=== PATIENT | male | born 1940 | race Caucasian/White ===

== ENCOUNTER 2022-10-04 08:12 | Outpatient (CLI) | payer MEDICARE, BC | END 2022-10-04 08:13 | disposition home or self-care (01) | LOC: CSHRAD 08:12 | PROVIDERS: ATTEND Nurse Practitioner Family | DX: J45.998 Other asthma (principal) | CPT/HCPCS: 71046 ==

== ENCOUNTER 2022-10-16 12:48 | Outpatient (CLI) | payer MEDICARE, BC | END 2022-10-16 12:49 | disposition home or self-care (01) | LOC: CSHWCC 12:48 | PROVIDERS: ATTEND Nurse Practitioner Family | DX: G31.84 Mild cognitive impairment of uncertain or unknown etiology (principal); J45.998 Other asthma; I10 Essential (primary) hypertension | CPT/HCPCS: 97139; G0277 ==

== ENCOUNTER 2022-11-09 10:07 | Outpatient (CLI) | payer MEDICARE, BC | END 2022-11-09 10:08 | disposition home or self-care (01) | LOC: CSHCT 10:07 | PROVIDERS: ATTEND Internal Medicine Pulmonary Disease | DX: R06.09 Other forms of dyspnea (principal); Z87.09 Personal history of other diseases of the respiratory system; J98.11 Atelectasis | CPT/HCPCS: 71250 ==

== ENCOUNTER 2022-12-11 08:09 | Outpatient (CLI) | payer MEDICARE, BC | END 2022-12-11 08:10 | disposition home or self-care (01) | LOC: CSHWCC 08:09 | PROVIDERS: ATTEND Nurse Practitioner Family | DX: I10 Essential (primary) hypertension (principal); J45.998 Other asthma | CPT/HCPCS: 97139; G0277 ==

== ENCOUNTER 2022-12-12 08:07 | Outpatient (CLI) | payer MEDICARE, BC | END 2022-12-12 08:08 | disposition home or self-care (01) | LOC: CSHWCC 08:07 | PROVIDERS: ATTEND Nurse Practitioner Family | DX: G31.84 Mild cognitive impairment of uncertain or unknown etiology (principal); J45.998 Other asthma | CPT/HCPCS: 97139; G0277 ==

== ENCOUNTER 2022-12-13 08:03 | Outpatient (CLI) | payer MEDICARE, BC | END 2022-12-13 08:04 | disposition home or self-care (01) | LOC: CSHWCC 08:03 | PROVIDERS: ATTEND Nurse Practitioner Family | DX: G31.84 Mild cognitive impairment of uncertain or unknown etiology (principal); I10 Essential (primary) hypertension; J45.998 Other asthma | CPT/HCPCS: 97139; G0277 ==

== ENCOUNTER 2022-12-14 08:07 | Outpatient (CLI) | payer MEDICARE, BC | END 2022-12-14 08:08 | disposition home or self-care (01) | LOC: CSHWCC 08:07 | PROVIDERS: ATTEND Nurse Practitioner Family | DX: G31.84 Mild cognitive impairment of uncertain or unknown etiology (principal); I10 Essential (primary) hypertension; J45.998 Other asthma | CPT/HCPCS: 97139; G0277 ==

== ENCOUNTER 2022-12-18 13:20 | Outpatient (CLI) | payer MEDICARE, BC | END 2022-12-18 13:21 | disposition home or self-care (01) | LOC: CSHWCC 13:20 | PROVIDERS: ATTEND Nurse Practitioner Family | DX: G31.84 Mild cognitive impairment of uncertain or unknown etiology (principal) ==

== ENCOUNTER 2022-12-19 13:05 | Outpatient (CLI) | payer MEDICARE, BC | END 2022-12-19 13:06 | disposition home or self-care (01) | LOC: CSHWCC 13:05 | PROVIDERS: ATTEND Nurse Practitioner Family | DX: I10 Essential (primary) hypertension (principal); G31.84 Mild cognitive impairment of uncertain or unknown etiology; J45.998 Other asthma ==

== ENCOUNTER 2022-12-20 13:19 | Outpatient (CLI) | payer MEDICARE, BC | END 2022-12-20 13:20 | disposition home or self-care (01) | LOC: CSHWCC 13:19 | PROVIDERS: ATTEND Nurse Practitioner Family | DX: G31.84 Mild cognitive impairment of uncertain or unknown etiology (principal); I10 Essential (primary) hypertension; J45.998 Other asthma | CPT/HCPCS: G0277 ==

== ENCOUNTER 2022-12-21 11:49 | Outpatient (CLI) | payer MEDICARE, BC | END 2022-12-21 11:50 | disposition home or self-care (01) | LOC: CSHWCC 11:49 | PROVIDERS: ATTEND Nurse Practitioner Family | DX: G31.84 Mild cognitive impairment of uncertain or unknown etiology (principal); J45.998 Other asthma; I10 Essential (primary) hypertension ==

== ENCOUNTER 2022-12-22 10:39 | Outpatient (CLI) | payer OTHER | END 2022-12-22 10:40 | disposition home or self-care (01) | LOC: CSHWCC 10:39 | PROVIDERS: ATTEND Nurse Practitioner Family | DX: G31.84 Mild cognitive impairment of uncertain or unknown etiology (principal) | CPT/HCPCS: G0277 ==

== ENCOUNTER 2022-12-26 08:25 | Outpatient (CLI) | payer MEDICARE, BC | END 2022-12-26 08:26 | disposition home or self-care (01) | LOC: CSHWCC 08:25 | PROVIDERS: ATTEND Nurse Practitioner Family | DX: G31.84 Mild cognitive impairment of uncertain or unknown etiology (principal) | CPT/HCPCS: G0277 ==

== ENCOUNTER 2022-12-27 08:21 | Outpatient (CLI) | payer MEDICARE, BC | END 2022-12-27 08:22 | disposition home or self-care (01) | LOC: CSHWCC 08:21 | PROVIDERS: ATTEND Nurse Practitioner Family | DX: I10 Essential (primary) hypertension (principal); G31.84 Mild cognitive impairment of uncertain or unknown etiology; J45.998 Other asthma | CPT/HCPCS: G0277 ==

== ENCOUNTER 2022-12-28 13:51 | Outpatient (CLI) | payer MEDICARE, BC | END 2022-12-28 13:52 | disposition home or self-care (01) | LOC: CSHWCC 13:51 | PROVIDERS: ATTEND Nurse Practitioner Family | DX: I10 Essential (primary) hypertension (principal); G31.84 Mild cognitive impairment of uncertain or unknown etiology; J45.998 Other asthma | CPT/HCPCS: 97139; G0277 ==

== ENCOUNTER 2022-12-29 08:05 | Outpatient (CLI) | payer MEDICARE, BC | END 2022-12-29 08:06 | disposition home or self-care (01) | LOC: CSHWCC 08:05 | PROVIDERS: ATTEND Nurse Practitioner Family | DX: I10 Essential (primary) hypertension (principal) | CPT/HCPCS: 97139; G0277 ==

== ENCOUNTER 2023-01-03 08:55 | Outpatient (CLI) | payer MEDICARE, BC | END 2023-01-03 08:56 | disposition home or self-care (01) | LOC: CSHWCC 08:55 | PROVIDERS: ATTEND Nurse Practitioner Family | DX: G31.84 Mild cognitive impairment of uncertain or unknown etiology (principal) | CPT/HCPCS: G0277 ==